=== PATIENT | female | born 1960 | race Caucasian/White ===

== ENCOUNTER 2023-12-23 15:05 | Emergency (ER) | payer OTHER, SELFPAY ==
[2023-12-23 15:18] VITALS: BP 161/66
[2023-12-23 15:41] LABS: % Basophils 0.5 % (0-2); % Immature Granulocytes 0.4 % (0-0.5); % Lymphocytes 7.6 % (20.5-51.1); % Monocytes 1.9 % (1.7-9.3); % Neutrophils 89.6 % (42.2-75.2); Absolute Basophils 0.1 10^3/uL (0-0.2); Absolute Lymphocytes 0.8 10^3/uL (1.2-3.4); Absolute Monocytes 0.2 10^3/uL (0.1-0.6); Absolute Neutrophils 9.1 10^3/uL (1.4-6.5); Hematocrit 39.3 % (37.0-47.0); Hemoglobin 13.8 g/dL (12.0-16.0); Mean Corp Hgb Conc. 35.1 g/dL (33.0-37.0); Mean Corpuscular Hgb 30.8 pg (27.0-31.0); Mean Corpuscular Volume 87.7 fL (81.0-99.0); Mean Platelet Volume 9.8 fL (7.4-10.4); Nucleated Red Blood Cells % 0 %; Platelet Count 306 10^3/uL (130-400); Red Blood Cell Count 4.48 10^6/uL (4.20-5.40); Red Cell Dist. Width 13.1 % (11.5-14.5); White Blood Cell Count 10.2 10^3/uL (4.8-10.8)
[2023-12-23 15:52] LABS: Urine Albumin Negative (Neg - Trace); Urine Bilirubin Negative (Negative); Urine Character Clear (Clear); Urine Color Yellow; Urine Glucose Negative (Negative); Urine Ketone 3+ (Negative); Urine Leukocyte Negative (Negative); Urine Nitrite Negative (Negative); Urine Occult Blood Negative (Negative); Urine Specific Gravity 1.015 (<1.030); Urine Urobilinogen Negative (Neg - 1+)
[2023-12-23 16:08] LABS: ALT (SGPT) 20 U/L (0-35); AST (SGOT) 25 U/L (14-36); Albumin 4.9 g/dl (3.5-5.0); Alkaline Phosphatase 77 U/L (38-126); Blood Urea Nitrogen 20 mg/dl (7-17); Calcium 9.7 mg/dl (8.4-10.2); Carbon Dioxide 22 mmol/L (22-30); Chloride 105 mmol/L (98-107); Glucose 136 mg/dl (70-99); Potassium 4.1 mmol/L (3.5-5.1); Sodium 141 mmol/L (135-145); Total Bilirubin 1.2 mg/dl (0.2-1.3); Total Protein 7.3 g/dl (6.3-8.2); eGFR > 60.00
[2023-12-23 16:09] LABS: Lipase 146 U/L (23-300)
[2023-12-23 16:33] VITALS: BP 123/68
--- NOTE | 2023-12-23 16:47 | ED.GENMED ---
History of Present Illness
General
Chief Complaint: Abdominal Symptoms
Time Seen by Provider: 12/23/23 16:18
History of Present Illness
History of Present Illness:
63-year-old otherwise healthy female presents to the emergency department for evaluation of acute onset of abdominal pain associated with nausea vomiting and diarrhea beginning this morning. Has had several nonbloody episodes of emesis and 1
episode of watery nonbloody diarrhea. She states that she ate shrimp from a high restaurant last night and suspects this could be the source. Abdominal pain is since improved. Abdominal surgical history includes x 2. No fevers
Review of Systems
Review of Systems
Allergies reviewed?: Yes
All Other Systems: ROS reviewed and negative except as documented in HPI and ROS
Phy Exam
Physical Exam
Physical Exam:
GEN: Well appearing, NAD, WDWN
HEENT: Oral mucosa moist, no scleral icterus
Cardiac: Regular rate and rhythm, no murmurs
Lung: No respiratory distress, no tachypnea
Abdomen: Soft, mildly tender to the upper abdomen diffusely, negative Vargas sign, no rigidity or peritoneal signs
MSK: No gross deformity or injuries
Skin: Good color, no pallor or jaundice, no rashes
Neuro: AO x3, moves all extremities freely
Psych: Calm, cooperative
Course
Orders/Labs/Results
Orders:
Orders
12/23/23 15:21
Electrocardiogram (*1) Urgent
Reason for Study: Abdominal Pain
EKG- Treatment ONCE
12/23/23 15:27
Urinalysis Reflex To Culture Urgent
Date Specimen was Collected: 12/23/23
Time Specimen was Collected: 15:21
12/23/23 15:33
Complete Blood Count/With Diff Urgent
Comprehensive Metabolic Panel Urgent
Lipase Urgent
12/23/23 16:47
0.9% Sodium Chloride 1000 ml [Nss] 1,000 ml IV BOLUS
Ondansetron Injectable [Zofran] 4 mg IV NOW STA
Abnormal Lab Results
12/23/23 12/23/23
15:27 15:33
Absolute Neuts (auto) 9.1 H 10^3/uL
(1.4-6.5)
Absolute Lymphs (auto) 0.8 L 10^3/uL
(1.2-3.4)
Neutrophils % 89.6 H %
(42.2-75.2)
Lymphocytes % 7.6 L %
(20.5-51.1)
BUN 20 H mg/dl
(7-17)
Glucose 136 H mg/dl
(70-99)
Urine Ketones 3+ A
(Negative)
12/23/23 15:33
12/23/23 15:33
Vital Signs
Initial and Last Documented VS:
Initial Vital Signs
Temp
97.9 F
12/23/23 15:15
Last Documented Vital Signs
Temp Pulse Resp BP Pulse Ox
97.7 F 84 14 128/62 100
12/23/23 15:18 12/23/23 18:15 12/23/23 18:15 12/23/23 18:00 12/23/23 18:15
MDM/Problems Addressed
MDM/Problems Addressed:
63-year-old female presents for evaluation of abdominal pain associated with nausea vomiting and diarrhea. Likely self-limited gastroenteritis. May be foodborne based on her reported intake of seafood last night however she has no risk factors for
complicated disease thus given short duration of symptoms there is no indication for stool testing or empiric antibiotics. Discussed supportive care. She was given IV fluids and antiemetics and was able to tolerate p.o. fluids at time of discharge
*Critical Care Note
Total Time (30-74mins, 75-104mins- exclusive of procedures): Not Applicable
ED Attending Note
-
Portions of this chart may have been created with voice recognition software.� Occasional wrong word or��sound alike� substitutions may have occurred due to the inherent limitations of voice recognition software.
Discharge Plan
Departure
Patient Disposition: Home (Routine Discharge)
Date of Disposition: 12/23/23
Time of Disposition: 18:11
Patient with high blood pressure during this ER visit?: No
Discharge Problem:
Gastroenteritis
Instructions: Dunn Diet, Nausea and Vomiting, Adult (DC)
Prescriptions:
New
ondansetron 4 mg tablet,disintegrating
4 mg PO TIDPRN PRN (Reason: nausea/vomiting) Qty: 10 0RF
Referrals:
Lory Keith MD [Family Provider] -
Activity Restrictions/Additional Instructions:
Start small with a bland diet over the next 24 hours; if your symptoms are improving, you may increase your food intake
if you have persistent diarrhea >5-7 days, please return to the ER or see your family doctor, as stool testing is likely indicated
Most healthy individuals can clear out food borne bacteria without the need for antibiotics; however, if symptoms last >1 week, antibiotics may be indicated
Return to the ER if you develop high fever, persistent vomiting despite nausea medications, or severe abdominal pain
Interventions
Interventions:
*Risk Screen - Suicide Last Done: 12/23/23 15:05
*General Assessment Last Done: 12/23/23 17:05
*Neglect/Abuse Screening Last Done: 12/23/23 17:05
ED- Fall Risk Assessment Last Done: 12/23/23 17:05
*ED COVID-19 Vaccine History Last Done: 12/23/23 17:05
*Nursing Disposition Last Done: 12/23/23 18:24
UT-Mrellx-Dnvzijqckx Assessment Last Done: 12/23/23 16:34
Discharge Date and Time
Discharge Date/Time: 12/23/23 18:24
Print Language: [id number]
[2023-12-23] MEDS: ZOFRAN 4 MG IV (16:59)
[2023-12-23 17:00] VITALS: BP 116/71
[2023-12-23] MEDS: NSS 1000 IV (17:00)
[2023-12-23 18:00] VITALS: BP 128/62
== END 2023-12-23 18:24 | disposition home or self-care (01) ==
LOC: EMR 15:05
PROVIDERS: Student in an Organized Health Care Education/Training Program; EMERGENCY PHYSICIAN Emergency Medicine; FAMILY PHYSICIAN Family Medicine
DX: K52.9 Noninfective gastroenteritis and colitis, unspecified (principal)
CPT/HCPCS: 99283; 96374; 96361; 80053; 81003; 83690; 85025; 93005